=== PATIENT | male | born 1960 | race African-American/Black ===

== ENCOUNTER 2017-09-04 16:09 | Emergency (ER) | payer MEDICAID ==
[~2017-09-04] VITALS: Ht 177.8 cm; Wt 170.0 kg
[~2017-09-04 16:09] MED LIST: AMLO10TA4 PO; COR12 PO; EPINEPHRINE 0.1MG/ML (1:10,000) 10ML SYR ONE; ETOMIDATE 2MG/ML 10ML VIAL IV ONE; Furosemide PO; GABA-531 PO; GLYB5TAB7 PO; HYDR-4005 PO; HYDR-4135 PO; LEVO500T2 PO; LEVVL SUBCUT; METH10TA2 PO; POTA-79 PO; Prednisone PO; RIVA20TA PO; SPIR25TA4 PO; SUCCINYLCHOLINE CHLORIDE 200MG/10ML VIAL IV ONE
[2017-09-04] MEDS ORDERED: NALOXONE HCL 0.4 MG/ML 1ML VIAL IV ONE ×2 (16:45→19:15)
[2017-09-04 16:52] LABS: BASOPHILS % 0.2 % (0.0-2.0); EOSINOPHILS % 0.6 % (0.0-5.0); HEMATOCRIT. 50.2 % (42.0-52.0); HEMOGLOBIN. 15.6 g/dL (14.0-18.0); LYMPHOCYTES % 7.3 % (20.0-50.0); MEAN CORPUSCULAR HEMOGLOBIN 29.8 pg (28.0-32.0); MEAN CORPUSCULAR VOLUME 95.9 fL (80.0-94.0); MEAN PLATELET VOLUME 8.8 fl (7.4-10.4); MONOCYTES % 6.8 % (2.0-8.0); NEUTROPHILS % 85.1 % (40.0-76.0); PLATELET 133 x1000/uL (130-400); RED BLOOD CELL COUNT 5.24 mill/uL (4.7-6.1); RED CELL DISTRIBUTION WIDTH 18.6 % (11.6-14.6)
[2017-09-04 17:03] LABS: INR 1.2; PROTHROMBIN TIME 12.7 sec (9.4-11.6)
[2017-09-04 17:10] LABS: CARBON DIOXIDE 39 mEq/L (21-32); CHLORIDE 105 mEq/L (98-107); TROPONIN I < 0.02 ng/mL (0.00-0.04)
[2017-09-04 19:00] LABS: BG BASE EXCESS 9.4 mmol/L (-2.0-2.0); BG CARBOXYHEMOGLOBIN 4.3 % (0.5-1.5); BG DEOXYHEMOGLOBIN 9.2 % (0.0-5.0); BG FRACTION INSPIRED OXYGEN 40; BG HCO3 ACT 45.1 mmol/L (22.0-26.0); BG METHEMOGLOBIN 0.3 % (0.0-1.5); BG OXYGEN SATURATION 90.4 % (92.0-98.5); BG OXYHEMOGLOBIN 86.2 % (94.0-97.0); BG PCO2 134.7 mmHg (35.0-45.0); BG PH 7.143 (7.350-7.450); BG PO2 66.5 mmHg (75.0-100.0); BG SAMPLE SITE LEFT RADIAL; BG TOTAL HEMOGLOBIN 16.6 g/dL (12.0-18.0); BG VENT MODE NASAL CANNULA
[2017-09-04] MEDS ORDERED: NALOXONE HCL 0.4 MG/ML 1ML VIAL ONE (19:07)
[2017-09-04 20:00] VITALS: BP 213/127
[2017-09-04] MEDS ORDERED: MAGNESIUM/ALUMINUM HYDROXIDE/SIMETHICONE 30ML UDC PO PRN (20:15)
[2017-09-04] MEDS ORDERED: ACETAMINOPHEN 325MG TABLET PO PRN (20:15)
[2017-09-04] MEDS ORDERED: ENOXAPARIN 40MG/0.4ML SYR SUBCUT SCH (20:15)
[2017-09-04] MEDS ORDERED: BUDESONIDE 0.5MG/2ML NEB HHN SCH (20:15)
[2017-09-04] MEDS ORDERED: ONDANSETRON HCL 4MG/2ML VIAL IV PRN (20:15)
[2017-09-04] MEDS ORDERED: IPRATROPIUM/ALBUTEROL 0.5-3(2.5)MG/3ML NEB INH PRN (20:15)
[2017-09-04] MEDS ORDERED: CLONIDINE 0.1MG TABLET PO PRN (20:15)
[2017-09-04] MEDS ORDERED: PROPOFOL 10MG/ML 100ML 100 ML IV ONE (20:18)
[2017-09-04] MEDS ORDERED: METHYLPREDNISOLONE SOD SUCC 125 MG/2 ML VIAL IV SCH (22:00)
[2017-09-05] MEDS ORDERED: FUROSEMIDE 40MG/4ML VIAL IV SCH (09:00)
== END 2017-09-04 23:00 | disposition expired ==
LOC: ER 16:22
DX: I46.9 Cardiac arrest, cause unspecified (principal); F11.20 Opioid dependence, uncomplicated; I11.0 Hypertensive heart disease with heart failure; I50.9 Heart failure, unspecified; E66.01 Morbid (severe) obesity due to excess calories; J44.9 Chronic obstructive pulmonary disease, unspecified; F41.9 Anxiety disorder, unspecified; E11.9 Type 2 diabetes mellitus without complications; Z88.2 Allergy status to sulfonamides; Z88.8 Allergy status to other drugs, medicaments and biological substances; Z79.4 Long term (current) use of insulin; Z86.718 Personal history of other venous thrombosis and embolism
CPT/HCPCS: 31500; 36415; 36600; 71010; 80048; 82375; 82805; 82962; 83880; 84484; 85025; 85610; 92950; 93005; 94660; 96374; 96376; 99291; J0171; J0330; J2310; J3490; Z7610; 94002; J2704; A4315